=== PATIENT | female | born 1990 | race Caucasian/White ===

== ENCOUNTER 2016-08-16 11:10 | Day surgery (SDC) | payer OTHER ==
[2016-08-12 10:44] LABS: APPEARANCE,URINE SLIGHTLY-CLOUDY; BILIRUBIN,URINE NEGATIVE (NEGATIVE); GLUCOSE, URINE NEGATIVE (NEGATIVE); KETONES,URINE NEGATIVE (NEGATIVE); LEUKOCYTE ESTERASE,URINE NEGATIVE (NEGATIVE); NITRITE,URINE NEGATIVE (NEGATIVE); PROTEIN,URINE NEGATIVE (NEGATIVE); URINE SPECIFIC GRAVITY 1.008; UROBILINOGEN,URINE NEGATIVE mg/dL (<2.0)
[2016-08-12 10:50] LABS: ABSOLUTE BASOPHILS # (AUTO) 0.1 10^3/uL (0.0-0.2); ABSOLUTE EOSINOPHILS # (AUTO) 0.1 10^3/uL (0.0-0.6); ABSOLUTE LYMPHOCYTES (AUTO) 2.9 10^3/uL (0.5-4.7); ABSOLUTE MONOCYTES (AUTO) 0.7 10^3/uL (0.1-1.4); ABSOLUTE NEUT (AUTO) 3.1 10^3/uL (1.7-8.2); BASOPHILS % (AUTO) 0.9 % (0-2); EOSINOPHILS % (AUTO) 1.2 % (0-6); HEMATOCRIT 36.5 % (36.0-47.0); HEMOGLOBIN 12.5 g/dL (12.0-15.5); LYMPHOCYTES % (AUTO) 42.4 % (13-45); MEAN CORPUSCULAR HEMOGLOBIN 28.1 pg (27.0-33.4); MEAN CORPUSCULAR HGB CONC 34.2 g/dL (32.0-36.0); MEAN CORPUSCULAR VOLUME 82 fl (80-97); MONOCYTES % (AUTO) 10.7 % (3-13); RED BLOOD COUNT 4.44 10^6/uL (3.72-5.28); RED CELL DISTRIBUTION WIDTH 13.6 % (11.5-14.0); SEGMENTED NEUTROPHILS % (AUTO) 44.8 % (42-78); WHITE BLOOD COUNT 6.8 10^3/uL (4.0-10.5)
[2016-08-12 11:07] LABS: ANION GAP 14 (5-19); BLOOD UREA NITROGEN 15 mg/dL (7-20); CALCIUM 9.4 mg/dL (8.4-10.2); CARBON DIOXIDE 23 mmol/L (22-30); CHLORIDE 106 mmol/L (98-107); GLUCOSE 78 mg/dL (75-110); POTASSIUM 4.1 mmol/L (3.6-5.0); SODIUM 143.1 mmol/L (137-145)
--- NOTE | 2016-08-12 16:02 | EKG REPORT ---
SEVERITY:- NORMAL ECG - SINUS RHYTHM : Confirmed by: Jeannie Ramsay 12-Aug-2016 16:01:57
[~2016-08-16 11:10] MED LIST: CEFAZOLIN 2 GM/D5W RTU 2 GM/50 ML RTUPB IV PRN; DEXAMETHASONE SOD PHOSPHATE INJ 4 MG/1 ML VIAL ONE; GLYCOPYRROLATE INJ 0.4 MG/2 ML VIAL ONE; KETOROLAC TROMETHAMINE 60 MG/2 ML SDV ONE; LACTATED RINGERS 1000 ML IV PRN; LIDOCAINE 0.5% INJ-PF (5 MG/ML) 50 ML SDV SUBCUT PRN; METOCLOPRAMIDE HCL INJ/PF 10 MG/2 ML SDV ONE; NEOSTIGMINE METHYLSULFATE 10 MG/10 ML VIAL ONE; ONDANSETRON HCL INJ/PF 4 MG/2 ML SDV ONE; ROCURONIUM BROMIDE INJ 50 MG/5 ML VIAL IV ONE
[2016-08-16] MEDS ORDERED: BUPIVACAINE HCL 0.5 % INJ/PF 30 ML SDV ONE (12:15)
[2016-08-16] MEDS ORDERED: EPINEPHRINE INJ/PF 1 MG/1 ML AMPULE ONE (12:16)
[2016-08-16] MEDS ORDERED: SCOPOLAMINE HYDROBROMIDE 1.5 MG PATCH.TD72 ONE (12:21)
[2016-08-16] MEDS ORDERED: FAMOTIDINE INJ/PF 20 MG/2 ML SDV IV ONE (12:21)
[2016-08-16] MEDS ORDERED: HYDROMORPHONE HCL INJ/PF 2 MG/ML AMPULE ONE (12:29)
[2016-08-16] MEDS ORDERED: MIDAZOLAM 2 MG/2 ML INJ ONE (12:30)
[2016-08-16] MEDS ORDERED: PROPOFOL INJ 200 MG/20 ML VIAL IV ONE (12:30)
[2016-08-16] MEDS ORDERED: FENTANYL CITRATE INJ/PF 100 MCG/2 ML AMPUL ONE ×3 (12:30→15:32)
[2016-08-16] MEDS ORDERED: ACETAMINOPHEN 100 ML IV ONE (12:30)
[2016-08-16] MEDS ORDERED: RINGERS SOLUTION,LACTATED 1,000 ML IV PRN (12:32)
[2016-08-16] MEDS ORDERED: RINGERS SOLUTION,LACTATED 1,000 ML IV ONE (13:00)
--- NOTE | 2016-08-16 15:20 | Operative Report ---
Operative Report DATE OF SURGERY: 08/16/16 PREOPERATIVE DIAGNOSIS: Right anterior/inferior labral tear POSTOPERATIVE DIAGNOSIS: Same OPERATION: Right shoulder arthroscopy with anterior inferior labral repair SURGEON: BOY RAMOS ANESTHESIA: GA TISSUE REMOVED OR ALTERED: None COMPLICATIONS: None ESTIMATED BLOOD LOSS: 15mL INTRAOPERATIVE FINDINGS: As above PROCEDURE: Patient was given 1 g of Ancef in the preoperative holding area. The right shoulder was marked. Patient was brought to the operating room and induced and intubated in supine position. Once the tube was secured the patient was placed in a beachchair position and an axillary roll was applied. At this point the right shoulder was prepped and draped in a normal sterile surgical fashion. Timeout was done identifying the right shoulder is correct site Spinal needle was introduced in the glenohumeral joint. 11 blade was used to establish a posterior portal. Scope was introduced the glenohumeral joint and I got a return of fluid showing proper placement. Camera was introduced and then under direct visualization I distended the glenohumeral joint with sterile saline solution. An 11 blade was used to establish the anterior portal and a blue cannula was introduced. Probe was introduced and showed patient had intact SLAP with a torn anterior inferior labrum detached from the glenoid. Pictures were taken confirming the labral tear. Posterior labrum was intact. Glenoid and humeral head to condition was intact and the rotator cuff was intact. At this point through the anterior portal I use my shaver to debride some of the tear and use the labral elevator. Continue to use the shaver to motor of patellar and burred the glenoid portion to cause some bleeding bone for healing and repair. I used a curved lasso to the left and shuttled a nitinol wire. I started with the most inferior portion of the tear. I shuttled a FiberWire and then cinched the stitch onto the labral successfully. I loaded a push lock and clamped it. I proceeded then to use the 2.9 push lock drill guide and placed on the face of the glenoid on the most inferior portion. Drilled to the stop and then removed it. I then followed the push lock Seamus down and secured the FiberWire into the predrilled hole and securing the labrum and fixing the labrum onto the glenoid face. The strands were cut with arthroscopic cutter. Repeated the procedure mentioned above 2 more times. A total 3 anchors were applied. Probe was used to show my fixation and repair of the anterior- inferior labrum. Also satisfied with my repair and no other pathology noted at this point I removed the fluid from the shoulder. I used 3-0 nylon to close the 2 portal sites and I proceeded to clean the shoulder and placed Xeroform 4 x 4 dressing and AVD pad. Tape was used to secure the dressing. Patient was placed in a sling. At this point the patient was placed in supine position extubated and sent to PACU in stable condition.
--- NOTE | 2016-08-16 15:22 | PDOC DISCHARGE SUMMARY ---
Discharge Summary (SDC) - Discharge Final Diagnosis: Status post right shoulder arthroscopy with labral repair Date of Surgery: 08/16/16 Discharge Date: 08/16/16 Condition: Good Treatment or Instructions: Patient is instructed to follow up in 10-14 days. Patient instructed to remove dressing in 4 days then can shower and apply Band- Aids as needed. Patient to wear sling for comfort but okay to remove for shower and pendulum exercises. Pendulum exercises are instructed to be done 3 times a day ideally with breakfast, lunch, dinners and showers. Patient instructed to call if there is any signs of redness or drainage fevers or chills. Prescriptions: Oxycodone HCl/Acetaminophen [Percocet 5-325 mg Tablet] 1 - 2 tab PO ASDIR PRN # 40 tablet PRN Reason: Discharge Diet: As Tolerated Respiratory Treatments at Home: Deep Breathing/Coughing Discharge Activity: No Driving, No Lifting/Push/Pulling Report the Following to Your Physician Immediately: Shortness of Breath, Vomiting, Increase in Pain, Fever over 101 Degrees, Unusual Bleeding, Redness, Increased Soreness, Drainage-Yellow, Drainage-Green, Drainage-Foul Smelling, Numbness
[2016-08-16] MEDS ORDERED: OXYCODONE-ACETAMINOPHEN 5-325 MG TABLET PO PRN ×2 (15:23)
[2016-08-16] MEDS ORDERED: ONDANSETRON HCL INJ/PF 4 MG/2 ML SDV ONE (16:18)
[2016-08-16 17:27] VITALS: BP 109/69
[2016-08-16] MEDS ORDERED: RINGERS SOLUTION,LACTATED 250 ML IV ONE (17:30)
== END 2016-08-16 17:20 | disposition home or self-care (01) ==
LOC: OROUT 11:10
PROVIDERS: ATTEND Orthopaedic Surgery
PROC: 0RBJ4ZZ Excision of Right Shoulder Joint, Percutaneous Endoscopic Approach (ICD-10-PCS; principal; 2016-08-16 13:00)
DX: S43.491D Other sprain of right shoulder joint, subsequent encounter (principal); Y93.23 Activity, snow (alpine) (downhill) skiing, snowboarding, sledding, tobogganing and snow tubing
CPT/HCPCS: 93005; 36415; 85025; 81025; 80048; 81001; 71020; 93010; 29822; C1713; J2250; J3490; J1100; J0171; J1885; J3010; J2765; J1170; J2405; J2704; S0028; J0690; J0131; 1630